=== PATIENT | female | born 1960 | race Two or more races ===

== ENCOUNTER 2017-10-10 11:46 | Emergency (ER) | payer OTHER ==
[~2017-10-10] VITALS: Ht 157.5 cm; Wt 75.7 kg
[~2017-10-10 11:46] MED LIST: KETO10TA2 PO; PROTONIX40 MG PO
[2017-10-10] MEDS ORDERED: ORPHENADRINE C100 MG PO (14:47)
[2017-10-10] MEDS ORDERED: KETO10TA2 PO (14:47)
== END 2017-10-10 14:55 ==
LOC: ER 11:46
DX: M54.5 Low back pain (principal)

== ENCOUNTER 2018-09-18 09:07 | Emergency (ER) | payer OTHER ==
[~2018-09-18] VITALS: Ht 188 cm; Wt 72.6 kg
[~2018-09-18 09:07] MED LIST changes: +ORPHENADRINE C100 MG PO
== END 2018-09-18 10:00 | disposition home or self-care (01) ==
LOC: ER 09:07
DX: M54.5 Low back pain (principal)

== ENCOUNTER 2020-07-29 08:00 | Emergency (ER) | payer OTHER ==
[~2020-07-29] VITALS: Ht 157.5 cm; Wt 77.1 kg
== END 2020-07-29 13:37 | disposition home or self-care (01) ==
LOC: ER 08:00
DX: N20.1 Calculus of ureter (principal)

== ENCOUNTER 2020-08-04 08:56 | Emergency (ER) | payer OTHER ==
[~2020-08-04] VITALS: Ht 157.5 cm; Wt 88.5 kg
[2020-08-04] MEDS ORDERED: STONEX PO (12:47)
[2020-08-04] MEDS ORDERED: KETO10TA2 PO (12:47)
[2020-08-04] MEDS ORDERED: CLOTRIMAZOLE-BE30 ML TOP (12:55)
== END 2020-08-04 13:04 ==
LOC: ER 08:56
DX: R10.31 Right lower quadrant pain (principal); N20.1 Calculus of ureter; Z20.822 Contact with and (suspected) exposure to COVID-19

== ENCOUNTER 2022-03-23 10:03 | Emergency (ER) | payer OTHER ==
[~2022-03-23] VITALS: Ht 157.5 cm; Wt 76.2 kg
[~2022-03-23 10:03] MED LIST changes: +CLOTRIMAZOLE-BE30 ML TOP; +STONEX PO
== END 2022-03-23 14:42 | disposition home or self-care (01) ==
LOC: ER 10:03
DX: M54.59 Other low back pain (principal)

== ENCOUNTER 2023-03-11 08:34 | Emergency (ER) | payer OTHER ==
[~2023-03-11] VITALS: Ht 157.5 cm; Wt 74.4 kg
[2023-03-11] MEDS ORDERED: BACTRIM DS TAB1 EACH PO (11:38)
== END 2023-03-11 11:53 | disposition home or self-care (01) ==
LOC: ER 08:35
DX: L02.413 Cutaneous abscess of right upper limb (principal)